=== PATIENT | male | born 1960 | race Two or more races ===

== ENCOUNTER 2019-04-03 17:23 | Emergency (ER) | payer OTHER ==
[~2019-04-03] VITALS: Ht 185.4 cm; Wt 88.9 kg
[2019-04-03] MEDS ORDERED: IV NS 0.9% 1,000 ML BAG IV ONE (17:30)
--- NOTE | 2019-04-03 17:32 | NUR ---
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
--- NOTE | 2019-04-03 17:34 | NUR ---
IV present MANAGER OFFICE, left AC g18. flushing well.
--- NOTE | 2019-04-03 17:42 | NUR ---
fsbs 222
[2019-04-03 18:28] LABS: BASOPHILS # (AUTO) 0.1 /CMM (0.0-0.2); BASOPHILS % (AUTO) 0.8 % (0.0-2.0); EOSINOPHILS % (AUTO) 3.2 % (0.0-6.0); HEMATOCRIT 35 % (39-51); HEMOGLOBIN 12.6 g/dL (13.5-17.5); LYMPHOCYTES # (AUTO) 0.8 /CMM (0.8-4.8); LYMPHOCYTES % (AUTO) 12.5 % (20.0-44.0); MEAN CORPUSCULAR HGB CONC 36 g/dl (31.0-36.0); MEAN CORPUSCULAR VOLUME 90 fL (80-96); MONOCYTES # (AUTO) 0.3 /CMM (0.1-1.30); MONOCYTES % (AUTO) 5.1 % (2.0-12.0); NEUTROPHILS % (AUTO) 78.4 % (43.0-81.0); PLATELET COUNT (AUTO) 183 /CMM (150-450); RED BLOOD CELL COUNT(AUTO) 3.95 MIL/uL (4.5-6.0); WHITE BLOOD COUNT (AUTO) 6.4 K/uL (4.3-11.0)
[2019-04-03 18:42] LABS: ALANINE AMINOTRANSFERASE 34 U/L (12-78); ALBUMIN 3.1 g/dL (3.4-5.0); ALKALINE PHOSPHATASE 115 U/L (46-116); ASPARTATE AMINOTRANSFERASE 21 U/L (15-37); BILIRUBIN,TOTAL 0.2 mg/dL (0.2-1.0); CALCIUM, SERUM 8.3 mg/dL (8.5-10.1); CARBON DIOXIDE 28 mmol/L (21-32); CHLORIDE 101 mmol/L (98-107); CREATININE 2.5 mg/dL (0.6-1.3); GLUCOSE 340 mg/dL (74-106); SODIUM SERUM 135 mmol/L (136-145); TOTAL PROTEIN, SERUM 6.9 g/dL (6.4-8.2); UREA NITROGEN, BLOOD 38 mg/dL (7-18)
[2019-04-03 18:43] LABS: POTASSIUM 5.8 mmol/L (3.5-5.1)
--- NOTE | 2019-04-03 19:18 | NUR ---
PATIENT RESTING ON BED. NO ACUTE DISTRESS. DENIES ANY PAIN OR DISCOMFORT. REPORT GIVEN TO ADEBAYO NGUYEN FOR JENNA
[2019-04-03] MEDS ORDERED: FUROSEMIDE 20 MG TABLET ONE (19:24)
[2019-04-03] MEDS ORDERED: ALBUTEROL FS 2.5 MG/0.5 ML VIAL.NEB ONE (19:25)
[2019-04-03] MEDS ORDERED: FUROSEMIDE 20 MG TABLET PO ONE (19:30)
[2019-04-03] MEDS ORDERED: ALBUTEROL FS 2.5 MG/0.5 ML VIAL.NEB NEB ONE (19:30)
--- NOTE | 2019-04-03 20:08 | NUR ---
Patient does not wish to proceed with medical care recommended by TERESO HIGHTOWER/ DR. CARD. Patient given information related to possible complications, up to and including , which could occur as a result of leaving the hospital at this time. Patient verbalizes understanding of risks involved due to leaving against medical advice. Patient has signed AMA form. IV removed. Catheter intact and site benign. Pressure and 4x4 applied to site. No bleeding noted. Patient discharged to home AMA. Written and verbal after care instructions given. Patient verbalizes understanding of instruction.
[2019-04-03 20:11] VITALS: BP 193/98
== END 2019-04-03 20:05 | disposition left against medical advice (07) ==
LOC: ER 17:26
DX: R55 Syncope and collapse (principal); N28.9 Disorder of kidney and ureter, unspecified; E87.5 Hyperkalemia; I10 Essential (primary) hypertension; E78.5 Hyperlipidemia, unspecified; E11.9 Type 2 diabetes mellitus without complications
CPT/HCPCS: 36415; 71045; 80048; 80076; 82962; 84484; 85025; 85730; 93005; 94640; 96360; 99284; J7030